=== PATIENT | female | born 1935 | race Caucasian/White ===

== ENCOUNTER 2019-09-04 04:54 | Inpatient (IN) ==
--- NOTE | 2019-08-16 15:21 | PAT Medication Instructions ---
Medication Instructions Date of Service August 16, 2019 Home Medications calcium carbonate [Calcium 600] 600 mg PO QAM cholecalciferol (vitamin D3) [Vitamin D3] 2,000 unit PO QPM metformin 500 mg PO QPM simvastatin 10 mg PO PM vitamin B complex [B Complex 1] 1 tab PO QAM DO NOT take the morning of surgery calcium carbonate [Calcium 600] 600 mg PO QAM vitamin B complex [B Complex 1] 1 tab PO QAM Take evening before surgery cholecalciferol (vitamin D3) [Vitamin D3] 2,000 unit PO QPM metformin 500 mg PO QPM simvastatin 10 mg PO PM Other Notes If you have any questions please call us at [phone] or [phone] or [phone] or [phone]
--- NOTE | 2019-08-17 13:34 | Anesthesiology Consultation ---
Date of Service August 17, 2019 Assessment & Plan (1) Encounter for pre-operative examination: - Awaiting review preop testing (labs, EKG, CXR). - Awaiting surgeon-ordered PCP preop evaluation scheduled 08/22 (Dr. Smith). - Family hx of anesthesia reaction: Son-- *succinylcholine (anectine) allergy* "very hard time coming out of anesthesia many years ago"-- Son "tested negative for MH" per records. No similar personal issues with anesthesia/surgeries per patient. - Check BSG AM DOS Chart Review Chart Review: Patient seen in Pre Admission Testing Teaching & Discussion Pre-Anesthesia Teaching/Discussion Notes: Instructed NPO after midnight before surgery,except medications with 15 cc of water. Medication instructions provided according to the PAT guidelines. History Surgery Operation Date: 09/04/19 12:00 Proposed Procedures p Right Anterior Total Hip Arthroplasty - Eliazar Ny DO Height/Weight Height: 5 ft 5 in Weight: 47.9 kg Allergies Allergy/AdvReac Type Severity Reaction Status Date / Time Bactrim Allergy Unknown . Verified 04/16/15 08:46 pollen extracts Allergy Unknown seasonal Verified 08/17/19 13:33 allergy sulfamethoxazole Allergy Unknown Unknown Verified 08/10/19 09:12 trimethoprim Allergy Unknown Unknown Verified 08/10/19 09:12 meloxicam [From Mobic] Allergy Unknown Verified 08/10/19 09:12 methylprednisolone AdvReac Unknown Unknown Verified 08/10/19 09:12 Medications Home Medications Medication Instructions Recorded Confirmed Last Taken calcium carbonate [Calcium 600] 600 mg PO QAM 08/10/19 08/10/19 Unknown cholecalciferol (vitamin D3) 2,000 unit PO QPM 08/10/19 08/10/19 Unknown [Vitamin D3] metformin 500 mg PO QPM 08/10/19 08/10/19 Unknown simvastatin 10 mg PO PM 08/10/19 08/10/19 Unknown vitamin B complex [B Complex 1] 1 tab PO QAM 08/10/19 08/10/19 Unknown Past Medical History Medical History Degenerative disc disease Diabetes mellitus, type 2 NIDDM History of gastritis Hyperlipidemia Osteoarthritis Exercise / Class Metabolic Activity II 4-5 Yardwork/Stairs/Walk up hill (one flight of stairs- no chest pain/no SOB) Past Family History Family History Mother Family history of diabetes mellitus Past Surgical History Surgical History History of arthroscopy of right knee History of blepharoplasty History of cataract surgery History of esophagogastroduodenoscopy (EGD) History of hysterectomy History of left hip replacement History of lumbar laminectomy History of tonsillectomy Past Anesthesia History No Hx of Anesthesia Complications Family hx of anesthesia reaction: Son-- *succinylcholine (anectine) allergy* "very hard time coming out of anesthesia many years ago"-- Son "tested negative for MH" per records. No similar personal issues with anesthesia/surgeries per patient. History of PONV No Hx of PONV and No Hx of Motion Sickness Social History Smoking Status: Never smoker Do You Dip or Chew Tobacco: No Hx Alcohol Use: No Hx Substance Use: No substance use type: does not use Review of Systems Seasonal allergies. Patient denies chest pain, shortness of breath, dyspnea on exertion, reflux, wheezing, palpitations. Physical Exam Vital Signs VITALS BP 135/73 P 81 TEMP 97.7 SP02 98%RA RESP 16 PHYSICAL Full neck and c-spine range of motion. Full TMJ range of motion. TMD 3 finger breaths Mallampati Score 3 Dentition: upper partial Lungs: clear throughout to auscultation Cardiac: regular rate and rhythm, no murmurs noted Spine: normal Carotid arteries: negative bruit Extremities: no edema
--- NOTE | 2019-08-17 14:27 | XRay Report ---
XR chest Pre-admission PA/Lat CLINICAL HISTORY: pat preoperative evaluation COMPARISON STUDY: 03/14/2015 FINDINGS: Mild emphysematous change. Diaphragms are smooth. Lungs are clear. No significant cardiac e nlargement. IMPRESSION: No acute process. Mild emphysematous change. The above report was generated using voice recognition software. It may contain grammatical, syntax or spelling errors. Electronically signed by: David Bacon M.D. 08/17/2019 2:26 PM
[2019-08-17 14:39] LABS: Basophils # (auto) 0.01 K/uL (0-0.2); Basophils % (auto) 0.2 %; Eosinophils # (auto) 0.01 K/uL (0-0.5); Eosinophils % (auto) 0.2 %; Hematocrit (blood only) 41.2 % (37-47); Hemoglobin 13.5 g/dL (12.0-16.0); Immature Granulocytes # (auto) 0.03 K/uL (0.00-0.02); Immature Granulocytes % (auto) 0.5 %; Lymphocytes # (auto) 1.69 K/uL (1.2-3.4); Lymphocytes % (auto) 29.9 %; Mean Corpuscular Hemoglobin 30.6 pg (25-34); Mean Corpuscular Hgb Conc 32.8 g/dL (32-36); Mean Corpuscular Volume 93.4 fL (80-100); Mean Platelet Volume 10.9 fL (7.4-10.4); Monocytes # (auto) 1.68 K/uL (0.11-0.59); Monocytes % (auto) 29.7 %; Neutrophils # (auto) 2.23 K/uL (1.4-6.5); Neutrophils % (auto) 39.5 %; Platelet Count 169 K/uL (130-400); RDW Coefficient of Variation 13.2 % (11.5-14.5); Red Blood Count 4.41 M/uL (4.2-5.4); White Blood Count 5.65 K/uL (4.8-10.8)
[2019-08-17 14:43] LABS: Appearance Urine Clear (Clear); Bacteria Urine Automated Negative (Negative); Bilirubin Urine Negative (Negative); Blood Urine Negative (Negative); Cast Urine Automated 0 /lpf (0-5); Color Urine Yellow; Epithelial Cell Urine Auto 0-5 /lpf (0-5); Glucose Urine UA Negative (Negative); Ketones Urine Negative (Negative); Leukocyte Esterase Urine 1+ (Negative); Nitrite Urine Negative (Negative); Protein Urine Negative (Negative); RBC Urine Automated 0-4 /hpf (0-4); Specific Gravity Urine 1.016 (1.000-1.030); Urobilinogen Urine Negative (Negative)
[2019-08-17 14:52] LABS: BUN Creatinine Ratio 23.2 (10-20); Calcium 9.1 mg/dl (8.5-10.1); Creatinine Clr Calc Pharmacy 43.3 ml/min; Est GFR (African American) 83.9; Est GFR (Non-African American) 72.4; Potassium 3.9 mmol/L (3.5-5.1)
[2019-08-17 15:02] LABS: Partial Thromboplastin Ratio 1.1; Partial Thromboplastin Time 29.9 Seconds (21.0-31.0); Prothrombin Time 10.5 Seconds (9.0-12.0)
[2019-08-17 15:04] LABS: Estimated Average Glucose 148 mg/dl; Hemoglobin A1C 6.8 % (4.5-5.6)
--- NOTE | 2019-09-03 15:00 | History & Physical Report ---
Date of Service September 03, 2019 Assessment & Plan (1) Degenerative joint disease of right hip: I have indicated the patient for right anterior total hip replacement. The risks, benefits and complications of surgery were explained to the patient which include but not limited to infection, acute blood loss, DVT/PE, injury to nerves, vessels, bone, soft tissue, arthrofibrosis, chronic pain, failure of the prosthesis, hip dislocation, leg length discrepancy, need for additional surgery, cardiac and pulmonary events and . The patient wished to proceed with surgery and informed consent was obtained at this time. We will plan for 81mg ASA BID post-operatively for DVT prophylaxis. Upon discharge the patient will be discharged home with home health services. Appropriate clearances by PCP were obtained. History of Present Illness Chief Complaint: Right hip pain/djd Primary Care Provider: Sherif Porras The patient is a 83 year old female who presents with complaints of severe right hip pain and DJD. The patient has failed outpatient conservative treatments to this point which included NSAIDs, IA corticosteroid injection, PT, home exercise/walking program. The patient's pain and limited function have progressed to the point where they severely hinder their activities of daily living and they no longer tolerate exercise programs. They are requesting to proceed with total hip replacement surgery. Allergies Allergy/AdvReac Type Severity Reaction Status Date / Time Bactrim Allergy Unknown . Verified 04/16/15 08:46 pollen extracts Allergy Unknown seasonal Verified 09/04/19 05:45 allergy sulfamethoxazole Allergy Unknown Unknown Verified 09/04/19 05:45 trimethoprim Allergy Unknown Unknown Verified 09/04/19 05:45 meloxicam [From Mobic] Allergy Unknown Verified 09/04/19 05:45 methylprednisolone AdvReac Unknown Unknown Verified 09/04/19 05:45 Home Medications Home Medications Medication Instructions Recorded Confirmed Type calcium carbonate [Calcium 600] 600 mg PO QAM 08/10/19 08/10/19 History cholecalciferol (vitamin D3) 2,000 unit PO QPM 08/10/19 08/10/19 History [Vitamin D3] metformin 500 mg PO QPM 08/10/19 08/10/19 History simvastatin 10 mg PO PM 08/10/19 08/10/19 History vitamin B complex [B Complex 1] 1 tab PO QAM 08/10/19 08/10/19 History Past Med/Surg History Medical History Degenerative disc disease Diabetes mellitus, type 2 NIDDM History of gastritis Hyperlipidemia Osteoarthritis Surgical History History of arthroscopy of right knee History of blepharoplasty History of cataract surgery History of esophagogastroduodenoscopy (EGD) History of hysterectomy History of left hip replacement History of lumbar laminectomy History of tonsillectomy Family History Mother Family history of diabetes mellitus Social History Preferred Language: Citizen Of [place] Communication Ability: Effective Occasional Caregiver Required: No Beliefs That Will Affect Care: [employer] Beliefs: [employer] Current Living Situation: Spouse Other Information That Helps Us Care for You: No Feels Safe at Home: Yes Safety Concerns: Feels Safe At This Time Smoking Status: Never smoker Do You Dip or Chew Tobacco: No ; Second Hand Exposure: No ; Hx Alcohol Use: No Hx Substance Use: No Review of Systems Review of Systems: All systems reviewed & are unremarkable except as noted in HPI & below Constitutional: as per Subjective / HPI Physical Exam Physical Exam: RLE NVSI +EHL/FHL/TA/GS SILT grossly, +2 DP pulse, compartments soft NT, limited painful ROM of the hip, antalgic gait. Constitutional: WD/WN, vitals as above Eyes: PERRL, conjunctivae normal, anicteric sclerae ENMT: external ear and nose normal, oropharynx normal Neck: trachea midline, no thyromegaly Respiratory: normal respiratory effort, lungs clear to auscultation Cardiovascular: RRR, no murmur, no edema Gastrointestinal (Abdomen): normal bowel sounds, soft, nontender, no hepatosplenomegaly Musculoskeletal: no cyanosis or clubbing, extremities motor strength 5/5 Skin: no rashes, warm and dry Neurologic: patellar DTR's 2+ bilat, sensation intact Psychiatric: A+Ox3, euthymic affect Lymphatic: no cervical or axillary lymphadenopathy Results & Data Diagnostic Findings Multiple views of the hip demonstrates severe DJD with complete loss of the joint space. +osteophytes, +sclerosis, +subchondral cysts.
[2019-09-04] MEDS ORDERED: ROPIVACAINE 0.5% HCL/PF 150 MG, BUPIVACAINE 0.5% MPF 30 ML, EPINEPHrine 30MG/30ML (OR U... INSTIL SCH (06:00)
[2019-09-04] MEDS ORDERED: FAMOTIDINE 20 MG TAB PO SCH (06:00)
[2019-09-04] MEDS ORDERED: CEFAZOLIN 2000MG 2,000 MG/15 ML SYR IV SCH (06:00)
[2019-09-04] MEDS ORDERED: TRANEXAMIC ACID 1,000 MG **IV Pre-op IV SCH (06:00)
[2019-09-04] MEDS ORDERED: LR 15ML/HR IV SCH (06:00)
[2019-09-04] MEDS ORDERED: ACETAMINOPHEN 500 MG TAB PO SCH (06:00)
[2019-09-04] MEDS ORDERED: METOCLOPRAMIDE HCL 10 MG TABLET PO SCH (06:00)
[2019-09-04] MEDS ORDERED: BUPIVACAINE 0.5 % 5 MG/1 ML PF 10ML VIAL ONE (06:25)
[2019-09-04] MEDS ORDERED: TRANEXAMIC ACID 1,000 MG **IV Intra-op IV SCH (06:30)
[2019-09-04] MEDS ORDERED: ORTHO JOINT ANESTHETIC ONE (06:41)
[2019-09-04] MEDS ORDERED: BACITRACIN INJ 50,000 UNIT VIAL ONE (06:41)
[2019-09-04] MEDS ORDERED: MIDAZOLAM HCL 1 MG/ML 2ML VIAL ONE (06:47)
[2019-09-04] MEDS ORDERED: fentaNYL citrate 100 MCG/2 ML VIAL ONE (06:47)
[2019-09-04] MEDS ORDERED: CEFAZOLIN 2,000 MG/15 ML IV PUSH IV ONE (06:51)
[2019-09-04] MEDS ORDERED: ONDANSETRON INJ 2 MG/ML 2 ML VIAL IV PRN ×2 (06:59→10:27)
[2019-09-04] MEDS ORDERED: fentaNYL citrate 100 MCG/2 ML VIAL IV PRN (06:59)
[2019-09-04] MEDS ORDERED: ATROPINE SULFATE 0.1 MG/ML 10ML SYR IV PRN (06:59)
[2019-09-04] MEDS ORDERED: ePHEDrine sulfate 50 MG/ML AMP IV PRN (06:59)
--- NOTE | 2019-09-04 06:59 | History & Physical Bridge Note ---
Date of Service September 04, 2019 History & Physical Bridge Note I have examined the patient, reviewed the History & Physical and in the interval since the performance of the History & Physical I have noted the following changes of clinical significance: no changes noted
[2019-09-04] MEDS ORDERED: LIDOCAINE HCL 2% 2 ML VIAL/AMP(20MG/ML) INFIL ONE (07:19)
[2019-09-04] MEDS ORDERED: ONDANSETRON INJ 2 MG/ML 2 ML VIAL ONE (07:19)
[2019-09-04] MEDS ORDERED: PROPOFOL IV EMULSION 10 MG/ML 20 ML VIAL IV ONE (07:19)
[2019-09-04] MEDS ORDERED: ePHEDrine sulfate 50 MG/ML SYR ONE (07:28)
--- NOTE | 2019-09-04 08:55 | Post Operative Brief Note ---
Immediate Post Op Note v1 Date of Surgery September 04, 2019 Pre & Post Diagnosis Operation Date: 09/04/19 07:00 Pre-Op Diagnosis: Right Hip Osteoarthritis Post-Op Diagnosis: Right Hip Osteoarthritis I identified the patient and participated in the time-out.: Yes Procedure Operation Date: 09/04/19 07:00 Actual Procedures p Right Anterior Total Hip Arthroplasty(Right) - Eliazar Ny DO Surgeon Eliazar Ny DO Screen Printing Supervisor Roldan Morelos Estimated Blood Loss 175 Findings Consistent with Post-Op Diagnosis Fluids 1200 cc LR Specimens femoral head Anesthesia Type Spinal MAC Complications none Disposition Disposition: Recovery Room Overlapping Procedure I was present for: the critical portions of procedure. I was immediately available: during the entire case. Back up surgeon: was not required during procedure.
--- NOTE | 2019-09-04 09:03 | Operative Report ---
Post Operative Report Pre & Post Diagnosis Operation Date: 09/04/19 07:00 Pre-Op Diagnosis: Right Hip Osteoarthritis Post-Op Diagnosis: Right Hip Osteoarthritis I identified the patient and participated in the time-out.: Yes Procedure Operation Date: 09/04/19 07:00 Actual Procedures p Right Anterior Total Hip Arthroplasty(Right) - Eliazar Ny DO Surgeon Eliazar Ny DO Digital Marketing Apprentice Roldan Morelos Estimated Blood Loss 175 Findings Consistent with Post-Op Diagnosis Fluids 1200 cc LR Specimens femoral head Anesthesia Type Spinal MAC Complications none Disposition Disposition: Recovery Room Indications The patient is a 83-year-old female who presents with severe progressive right hip DJD who has failed outpatient conservative treatments. I indicated the patient for a anterior total hip replacement and the risks and benefits were explained in detail which include but not limited to infection, bleeding, blood clot, damage to surrounding bone, nerves, vessels, soft tissue, hip dislocation, failure of the prosthesis, leg length discrepancy, need for additional surgery and . The patient agreed to proceed with replacement of the hip and informed consent was obtained. Appropriate clearances were obtained. Description of Procedure COMPONENTS USED: [employer]ph[employer]-ID [employer] hip system: Acetabulum size 52, femur size 6 standard offset, femoral head 36-3, liner 5236, acetabular screw 25 mm x 1. DESCRIPTION OF PROCEDURE: Following satisfactory spinal anesthesia, the patient was placed supine on the OR table. The left leg was placed in the well leg white and the right leg in the traction device. The right leg was prepared with ChloraPrep and draped sterilely. A surgical timeout was performed, patient identified and site christine verified. Appropriate antibiotics were given. A standard anterior approach in the interval between the sartorius and tensor muscles was performed. Dissection was carried down through subcutaneous tissues. Electrocautery was utilized for hemostasis. Circumflex femoral vessels were identified, tied and ligated. The anterior capsular fat pad was removed and the capsulotomy was performed revealing the arthritic femoral neck and head. A femoral neck cut was made with reciprocating saw and the bone fragments removed. The acetabular self-retraining retractor was placed. Acetabular reaming was completed under fluoroscopic guidance, a 52 shell was impacted into an anatomic position and secured with a dome screw. Local anesthetic was placed and following irrigation, the polyethylene liner was placed. The femur was placed into position of external rotation, extension and adduction. Femoral canal was prepared up to the size 6 standard offset. Trial reduction with a -3 neck length head showed good soft tissue tension, leg lengths restored, and good fit and fill of the proximal canal using fluoroscopic landmarks. The hip was dislocated. The trial component was removed. The final implant was placed. The hip was irrigated with sterile saline solution and reduced. A Betadine soak was performed. After 3 minutes, the hip was once more irrigated with copious sterile saline solution with bacitracin. Danica-incisional soft tissue was injected utilizing [facility] [place] [facility] which includes a combination of Ropivicaine 0.5% 150mg, Bupivicaine 0.5%/Epinephrine 1:200,000 30ml, Toradol 30mg, Dexamethasone 4mg, Ketamine 10mg, Clonidine 100mcg and NSS 30ml solution. The capsule was then closed with 1-0 Vicryl interrupted figure of eight sutures. The fascia was closed with a running suture of #1 Vicryl, the subcutaneous tissues with 2-0 Vicryl and the skin with a running subcuticular stitch of 3-0 V-Loc. Dermabond prineo and a dry dressing were applied. The patient tolerated the procedure well and was transported to PACU in stable condition. Due to the complex nature of the procedure, the entire surgery was performed with the operational assistance of Roldan Morelos PA-C. The surgical supply assistant, under direct supervision, was involved in the actual performance of all aspects of the surgical procedure including patient positioning, hemostasis, tissue retraction, instrument management and wound closure. I attest to the content of the Intraoperative Record and any orders documented therein. Any exceptions are noted below.
--- NOTE | 2019-09-04 09:11 | Fluoroscopy Report ---
FL hip RT 1V HISTORY: 83 years-old Female RT ANTERIOR TOTAL HIP right hip total joint arthroplasty COMPARISON: Pelvis radiograph 04/16/2015 TECHNIQUE: 2 spot fluoroscopic images of the right hip were obtained utilizing 1 minute and 3.5 secon ds fluoroscopy time FINDINGS: Bilateral hip total joint arthroplasties appear to be in satisfactory alignment. Multiple pelvic basi n calcifications redemonstrated. Soft tissue swelling with deep tissue air about the right hip, expec elmer postoperative findings. No acute fracture or dislocation. IMPRESSION: Satisfactory alignment of the right hip total joint arthroplasty. The above report was generated using voice recognition software. It may contain grammatical, syntax o r spelling errors. Electronically signed by: James Thompson M.D. 09/04/2019 9:10 AM
--- NOTE | 2019-09-04 09:48 | XRay Report ---
AP PELVIS, CROSSTABLE LATERAL RIGHT HIP History: Right total hip arthroplasty. Degenerative arthritis. Postop. FINDINGS: The patient is status post a right total hip arthroplasty. The hardware is intact. No fract ure or dislocation. Evidence for prior left total hip arthroplasty. IMPRESSION: Right total hip arthroplasty. No evidence for hardware complication Electronically signed by: Torres Muniz M.D. 09/04/2019 9:47 AM
--- NOTE | 2019-09-04 09:49 | Anesthesiology Progress Note ---
Date of Service September 04, 2019 Anesthesia Post Procedure Vital Signs Vital Signs: Temp Pulse Pulse Pulse Resp BP BP 09/04/19 09:45 77 14 119/63 09/04/19 09:40 73 14 116/62 09/04/19 09:35 81 14 106/56 L 09/04/19 09:30 85 20 125/60 09/04/19 09:25 97.5 F L 83 83 16 111/61 111/61 09/04/19 05:33 97.7 F 72 18 146/78 H Pulse Ox 09/04/19 09:45 99 09/04/19 09:40 99 09/04/19 09:35 98 09/04/19 09:30 94 09/04/19 09:25 96 09/04/19 05:33 99 Pain Intensity Right Hip: Pain Intensity: 0 Transfer of Care Handoff Completed per policy Notes Mental Status: alert / awake / arousable and participated in evaluation Patient Amnestic to Procedure: Yes Nausea / Vomiting: adequately controlled Pain: adequately controlled Airway Patency, RR, SpO2: stable & adequate BP & HR: stable & adequate Hydration State: stable & adequate Neuraxial Anesthesia: was administered and sensory block is resolving Anesthetic Complications: no major complications apparent and Pt Satisfied with anesthetic care
[2019-09-04] MEDS ORDERED: BISACODYL 10 MG SUPP PR PRN (10:27)
[2019-09-04] MEDS ORDERED: METOCLOPRAMIDE HCL INJ 5 MG/ML 2 ML VIAL IV PRN (10:27)
[2019-09-04] MEDS ORDERED: HYDROmorphone INJ 0.5 MG/0.5 ML SYR IV PRN (10:27)
[2019-09-04] MEDS ORDERED: NALOXONE HCL 0.4 MG/1 ML VIAL/CARP IV PRN (10:27)
[2019-09-04] MEDS ORDERED: MAGNESIUM HYDROXIDE SUSP 30 ML UDC PO PRN (10:27)
[2019-09-04] MEDS: SODIUM CHLORIDE 0.9% 1000ML 1,000 ML IV SCH ×2 (10:55→21:11)
[2019-09-04] MEDS ORDERED: PHARMACY GLYCEMIC MGMT CONSULT PRN (11:06)
[2019-09-04] MEDS: dexAMETHasone 4 MG TAB PO SCH ×2 (11:11→15:09)
[2019-09-04] MEDS ORDERED: CARBOHYDRATES FOR HYPOGLYCEMIA PO PRN (11:30)
[2019-09-04] MEDS ORDERED: GLUCOSE 10 TABS/TUBE PO PRN (11:30)
[2019-09-04] MEDS ORDERED: DEXTROSE 50% 50 ML SYRINGE IV PRN (11:30)
[2019-09-04] MEDS ORDERED: GLUCAGON FOR INJ 1 MG VIAL SQ PRN (11:30)
[2019-09-04] MEDS ORDERED: GLUCOSE 40% GEL 15 GM TUBE PO PRN (11:30)
--- NOTE | 2019-09-04 11:31 | Pharmacy Report ---
Glycemic Control Consultation - Date of Service September 04, 2019 - Scope Scope: Glycemic Pharmacist consulted by Dr Ny on 09/04 for glycemic control and to write orders per [facility] inpatient glycemic control protocol - Objective Weight: 48.3 kg Accuchecks BSG (last 24hrs): 09/04/19 09/04/19 05:19 09:30 POC Glucose 114 H 164 H HbA1c: Hemoglobin A1c 6.8 % (4.5-5.6) H 08/17/19 14:00 - Recent Pertinent Medications Outpatient Anti-diabetic Regimen: * Metformin ER 500 mg daily * A1c = 6.8 % 08/17/19 Risk Factors for Insulin Resistance: * Steroids: Decadron 4 mg in periarticular injection; patient refused po preop Decadron * Recent Surgery: POD 0 s/p R MALIK * Diet: NPO -> T2DM - Assessment & Plan Assessment & Plan: ASSESSMENT: * 83 y/o female with history of well controlled T2DM, admitted s/p MALIK * Pt is maintained on oral antidiabetic agents as an outpatient * Oral agents are not recommended for inpatient use d/t drug interactions, changing PO intake, and difficulty titrating for acute hyper/hypoglycemia. ADA recommends re-initiating outpatient oral agents 1-2 days prior to discharge if/when appropriate if they were held on admission. * Will hold oral agents for admission and utilize SQ basal bolus insulin regimen which is the recommended regimen for inpatient glycemic control. * Will initiate weight based insulin dosing for insulin dong patient and titrate based on BSG trends. PLAN FOR INPATIENT GLYCEMIC CONTROL: * Holding outpatient oral diabetes medications * Bolus insulin * NovoLog per scale ACHS or Q6hrs while NPO * Goal Range: Low 110 mg/dL - High 140 mg/dL * Correction Factor: 40 mg/dL/unit * Nutritional / Prandial insulin per carb ratio of 1 unit per 13 grams CHO consumed Discharge Recommendations: * A1c = 6.8% on 08/17/19 * Goal A1c < 7% for patient's age/comorbidities * Continue metformin on discharge. Metformin has been adjusted on med list to ER formulation. Thank you.
[2019-09-04] MEDS: MULTIVITAMIN TAB PO SCH (12:29)
[2019-09-04] MEDS: DOCUSATE SODIUM 100 MG CAP PO SCH ×2 (12:29→21:08)
[2019-09-04] MEDS: INSULIN ASPART 100 UNITS/ML 3 ML PEN SC SCH ×3 (12:51→22:15)
[2019-09-04] MEDS: CEFAZOLIN 1000MG 1,000 MG/7.5 ML SYR IV SCH ×2 (16:23→23:34)
--- NOTE | 2019-09-04 18:02 | Orthopedic Progress Note ---
Date of Service September 04, 2019 Assessment & Plan (1) Degenerative joint disease of right hip: s/p R anterior MALIK -ancef x 24 -DVT ppx: SCDs, TEDs, 81mg ASA BID -WBAT RLE -PT/OT -PO XR demonstrates well aligned well fixed total hip prothesis, no fx/dislocation -am labs -DC planning Subjective Post Operative Progress Note Patient seen sitting up in bed, comfortable, denies complaints, pain well controlled, no acute issues. Denies F/C/N/V/SOP/CP. Review of Systems Review of Systems: All systems reviewed & are unremarkable except as noted in HPI & below Physical Exam Physical Exam: RLE NVSI +EHL/FHL/TA/GS SILT grossly, +2 DP pulse, compartments soft NT, dressing cdi. Constitutional: WD/WN, vitals as above Results & Data Vital Signs (Past 12 Hours) Vital Signs Temp Pulse Pulse Pulse Pulse Resp BP 09/04/19 15:03 36.7 C 63 17 09/04/19 14:51 36.7 C 86 17 09/04/19 13:15 36.4 C L 81 16 09/04/19 12:33 36.3 C L 09/04/19 12:15 85 16 09/04/19 11:13 69 16 09/04/19 10:27 76 16 09/04/19 10:15 34.7 C L 75 16 09/04/19 10:00 72 14 119/63 09/04/19 09:55 72 11 L 120/61 09/04/19 09:53 36.4 C L 09/04/19 09:50 73 14 112/62 09/04/19 09:45 77 14 119/63 09/04/19 09:40 73 14 116/62 09/04/19 09:35 81 14 106/56 L 09/04/19 09:30 85 20 125/60 09/04/19 09:25 36.4 C L 83 83 16 111/61 BP Pulse Ox 09/04/19 15:03 112/73 97 09/04/19 14:51 134/59 L 96 09/04/19 13:15 127/65 97 09/04/19 12:33 09/04/19 12:15 133/68 96 09/04/19 11:13 122/67 98 09/04/19 10:27 126/75 96 09/04/19 10:15 110/64 09/04/19 10:00 99 09/04/19 09:55 99 09/04/19 09:53 100 09/04/19 09:50 99 09/04/19 09:45 99 09/04/19 09:40 99 09/04/19 09:35 98 09/04/19 09:30 94 09/04/19 09:25 111/61 96
[2019-09-04] MEDS: OXYCODONE HCL IR 5 MG TAB (IMMEDIATE RELEASE) PO PRN (19:49)
[2019-09-04] MEDS ORDERED: SIMVASTATIN 10 MG TAB PO SCH (21:00)
[2019-09-04] MEDS ORDERED: SENNA 8.6 MG TAB PO SCH (21:00)
[2019-09-04] MEDS: ACETAMINOPHEN 500 MG TAB PO PRN (21:08)
[2019-09-04] MEDS ORDERED: IBUPROFEN 200 MG TAB PO STA (22:09)
[2019-09-05] MEDS: ACETAMINOPHEN 500 MG TAB PO PRN (03:10)
[2019-09-05] MEDS: OXYCODONE HCL IR 5 MG TAB (IMMEDIATE RELEASE) PO PRN (05:40)
[2019-09-05 06:01] LABS: Hematocrit (blood only) 30.2 % (37-47); Mean Corpuscular Hemoglobin 30.9 pg (25-34); Mean Corpuscular Hgb Conc 33.1 g/dL (32-36); Mean Corpuscular Volume 93.2 fL (80-100); Mean Platelet Volume 11.2 fL (7.4-10.4); Platelet Count 116 K/uL (130-400); RDW Coefficient of Variation 13.4 % (11.5-14.5); RDW Standard Deviation 45.6 fL (36.4-46.3); Red Blood Count 3.24 M/uL (4.2-5.4); White Blood Count 34.49 K/uL (4.8-10.8)
[2019-09-05 06:02] LABS: BUN Creatinine Ratio 29.1 (10-20); Creatinine Clr Calc Pharmacy 43.1 ml/min; Est GFR (African American) 82.6; Est GFR (Non-African American) 71.3; Potassium 3.4 mmol/L (3.5-5.1)
[2019-09-05 06:15] LABS: ALC (manual) 1.48 K/uL (1.2-3.4); ANC (manual) 24.07 K/uL (1.4-6.5); Lymphocytes # (manual) 1.48 K/uL (1.2-3.4); Lymphocytes % (manual) 4.3 %; Monocytes # (manual) 8.93 K/uL (0.11-0.59); Monocytes % (manual) 25.9 %; Neutrophils # (manual) 24.07 K/uL (1.4-6.5); Neutrophils % (manual) 69.8 %; RBC Morphology Unremarkable
[2019-09-05] MEDS: DOCUSATE SODIUM 100 MG CAP PO SCH (08:27)
[2019-09-05] MEDS: MULTIVITAMIN TAB PO SCH (08:27)
[2019-09-05 08:38] LABS: Hematocrit (blood only) 29.5 % (37-47); Hemoglobin 10.1 g/dL (12.0-16.0); Mean Corpuscular Hemoglobin 31.6 pg (25-34); Mean Corpuscular Hgb Conc 34.2 g/dL (32-36); Mean Corpuscular Volume 92.2 fL (80-100); Mean Platelet Volume 10.5 fL (7.4-10.4); Platelet Count 111 K/uL (130-400); RDW Coefficient of Variation 13.5 % (11.5-14.5); RDW Standard Deviation 45.5 fL (36.4-46.3)
[2019-09-05 08:48] LABS: ALC (manual) 2.22 K/uL (1.2-3.4); ANC (manual) 20.86 K/uL (1.4-6.5); Lymphocytes # (manual) 2.22 K/uL (1.2-3.4); Lymphocytes % (manual) 6.1 %; Metamyelocytes # (manual) 0.33 K/uL (0-0); Metamyelocytes % (manual) 0.9 %; Monocytes # (manual) 12.99 K/uL (0.11-0.59); Monocytes % (manual) 35.7 %; Neutrophils # (manual) 20.86 K/uL (1.4-6.5); Neutrophils % (manual) 57.3 %
[2019-09-05] MEDS ORDERED: ASPIRIN 81 MG ECTAB PO SCH (09:00)
[2019-09-05] MEDS: INSULIN ASPART 100 UNITS/ML 3 ML PEN SC SCH ×2 (09:02→12:52)
--- NOTE | 2019-09-05 10:12 | Orthopedic Progress Note ---
Date of Service September 05, 2019 Assessment & Plan (1) Degenerative joint disease of right hip: s/p R anterior MALIK POD#1 -ancef x 24 -DVT ppx: SCDs, TEDs, 81mg ASA BID -WBAT RLE -PT/OT -PO XR demonstrates well aligned well fixed total hip prothesis, no fx/dislocation -am labs - 10.0 -DC planning - home with HH Subjective Post Operative Progress Note Patient seen sitting up in bed, comfortable, denies complaints, pain well controlled, no acute issues. Denies F/C/N/V/SOP/CP. Review of Systems Review of Systems: All systems reviewed & are unremarkable except as noted in HPI & below Constitutional: as per Subjective / HPI Physical Exam Physical Exam: RLE NVSI +EHL/FHL/TA/GS SILT grossly, +2 DP pulse, compartments soft NT, dressing cdi. Constitutional: WD/WN, vitals as above Results & Data Vital Signs (Past 12 Hours) Vital Signs Temp Pulse Resp BP Pulse Ox 09/05/19 06:57 36.6 C 69 18 95/57 L 95 09/05/19 03:00 36.8 C 74 16 99/49 L 97 09/04/19 23:13 37.8 C H 85 18 107/49 L 94 Laboratory Results 09/05/19 09/05/19 09/05/19 Range/Units 08:16 08:06 04:45 WBC 36.40 H* (4.8-10.8) K/uL RBC 3.20 L (4.2-5.4) M/uL Hgb 10.1 L (12.0-16.0) g/dL Hct 29.5 L (37-47) % MCV 92.2 (80-100) fL MCH 31.6 (25-34) pg MCHC 34.2 (32-36) g/dL RDW Std Deviation 45.5 (36.4-46.3) fL RDW Coeff of Morirs 13.5 (11.5-14.5) % Plt Count 111 L (130-400) K/uL MPV 10.5 H (7.4-10.4) fL Neutrophils % (Manual) 57.3 % Lymphocytes % (Manual) 6.1 % Monocytes % (Manual) 35.7 % Metamyelocytes % (Man) 0.9 % Neutrophils # (Manual) 20.86 H (1.4-6.5) K/uL Total Absolute Neuts 20.86 H (1.4-6.5) K/uL Lymphocytes # (Manual) 2.22 (1.2-3.4) K/uL Total Abs Lymphocytes 2.22 (1.2-3.4) K/uL Monocytes # (Manual) 12.99 H (0.11-0.59) K/uL Metamyelocytes # (Man) 0.33 H (0-0) K/uL RBC Morphology Sodium 135 L (136-145) mmol/L Potassium 3.4 L (3.5-5.1) mmol/L Chloride 102 (98-107) mmol/L Carbon Dioxide 25 (21-32) mmol/L Anion Gap 8.0 (3-11) BUN 23 H (7-18) mg/dl Creatinine 0.78 (0.6-1.2) mg/dl Est Cr Clr Drug Dosing 43.1 ml/min Est GFR ( Amer) 82.6 Est GFR (Non-Af Amer) 71.3 BUN/Creatinine Ratio 29.1 H (10-20) Glucose 192 H (70-99) mg/dl POC Glucose 208 H (70-99) Calcium 8.0 L (8.5-10.1) mg/dl 09/05/19 09/04/19 09/04/19 Range/Units 04:45 20:29 17:09 WBC 34.49 H* (4.8-10.8) K/uL RBC 3.24 L (4.2-5.4) M/uL Hgb 10.0 L (12.0-16.0) g/dL Hct 30.2 L (37-47) % MCV 93.2 (80-100) fL MCH 30.9 (25-34) pg MCHC 33.1 (32-36) g/dL RDW Std Deviation 45.6 (36.4-46.3) fL RDW Coeff of Morris 13.4 (11.5-14.5) % Plt Count 116 L (130-400) K/uL MPV 11.2 H (7.4-10.4) fL Neutrophils % (Manual) 69.8 % Lymphocytes % (Manual) 4.3 % Monocytes % (Manual) 25.9 % Metamyelocytes % (Man) % Neutrophils # (Manual) 24.07 H (1.4-6.5) K/uL Total Absolute Neuts 24.07 H (1.4-6.5) K/uL Lymphocytes # (Manual) 1.48 (1.2-3.4) K/uL Total Abs Lymphocytes 1.48 (1.2-3.4) K/uL Monocytes # (Manual) 8.93 H (0.11-0.59) K/uL Metamyelocytes # (Man) (0-0) K/uL RBC Morphology Unremarkable Sodium (136-145) mmol/L Potassium (3.5-5.1) mmol/L Chloride (98-107) mmol/L Carbon Dioxide (21-32) mmol/L Anion Gap (3-11) BUN (7-18) mg/dl Creatinine (0.6-1.2) mg/dl Est Cr Clr Drug Dosing ml/min Est GFR ( Amer) Est GFR (Non-Af Amer) BUN/Creatinine Ratio (10-20) Glucose (70-99) mg/dl POC Glucose 116 H 192 H (70-99) Calcium (8.5-10.1) mg/dl 09/04/ Range/Units 12:11 WBC (4.8-10.8) K/uL RBC (4.2-5.4) M/uL Hgb (12.0-16.0) g/dL Hct (37-47) % MCV (80-100) fL MCH (25-34) pg MCHC (32-36) g/dL RDW Std Deviation (36.4-46.3) fL RDW Coeff of Morris (11.5-14.5) % Plt Count (130-400) K/uL MPV (7.4-10.4) fL Neutrophils % (Manual) % Lymphocytes % (Manual) % Monocytes % (Manual) % Metamyelocytes % (Man) % Neutrophils # (Manual) (1.4-6.5) K/uL Total Absolute Neuts (1.4-6.5) K/uL Lymphocytes # (Manual) (1.2-3.4) K/uL Total Abs Lymphocytes (1.2-3.4) K/uL Monocytes # (Manual) (0.11-0.59) K/uL Metamyelocytes # (Man) (0-0) K/uL RBC Morphology Sodium (136-145) mmol/L Potassium (3.5-5.1) mmol/L Chloride (98-107) mmol/L Carbon Dioxide (21-32) mmol/L Anion Gap (3-11) BUN (7-18) mg/dl Creatinine (0.6-1.2) mg/dl Est Cr Clr Drug Dosing ml/min Est GFR ( Amer) Est GFR (Non-Af Amer) BUN/Creatinine Ratio (10-20) Glucose (70-99) mg/dl POC Glucose 139 H (70-99) Calcium (8.5-10.1) mg/dl
--- NOTE | 2019-09-05 12:01 | Consultation ---
Date of Consultation September 05, 2019 Assessment & Plan (1) Leukocytosis: incidentally found to have elevated WBC at 34k differential was normal, no left shift, no bands had a low grade fever last night but nothing since no evidence of infection at this time, lungs clear, abdomen soft, NT CXR is normal, UA clean, procalcitonin is 0.34 which argues against a bacterial infection patient can go home from medical perspective, elevated WBC most likely reactive after surgery script given to follow up on 09/08 with outpatient CBC with results to her PCP instructed her to return to hospital if she has a fever, develops cough, dysuria, abdominal pain, diarrhea etc History of Present Illness Requesting Physician: Dr. Rojas Reason for Consultation: Leukocytosis Attending Physician: Eliazar Ny DO History of Present Illness 83 yo female with medical history of DM type II, dyslipidemia and OA who presented for elective right MALIK with Dr. Ny. Surgery performed on 09/04, no complications, transferred to medical floor in stable condition. Patient had a low grade fever last night at 38.3 but she does not recall feeling warm or diaphoretic. This morning she is feeling well, she is ambulating with therapy, doing her exercises. She ate breakfast. + flatus but not BM. She denies chest pain, dyspnea, cough, abdominal pain. She denies dysuria, urinary frequency, urgency. She has some right hip pain but well controlled and not limiting her mobility. She had some light headedness with walking in the hallway, the RN told me this, the patient left this out. We are consulted for a leukocytosis this morning of 34k. This was on routine CBC. The neutrophils and lymphocytes were within a normal differential. At first thought it was due to Decadron that was ordered pre op but the patient refused to take it yesterday. This was confirmed by RN. WBC was repeated to rule out lab error and it again was 36k. Again, the patient denies fever, cough, dyspnea, abdominal pain, dysuria. No obvious rashes. She wants to go home today. Allergies Allergy/AdvReac Type Severity Reaction Status Date / Time Bactrim Allergy Unknown . Verified 04/16/15 08:46 pollen extracts Allergy Unknown seasonal Verified 09/04/19 05:45 allergy sulfamethoxazole Allergy Unknown Unknown Verified 09/04/19 05:45 trimethoprim Allergy Unknown Unknown Verified 09/04/19 05:45 meloxicam [From Mobic] Allergy Unknown Verified 09/04/19 05:45 methylprednisolone AdvReac Unknown Unknown Verified 09/04/19 05:45 Home Medications Home Medications Medication Instructions Recorded Confirmed Type calcium carbonate [Calcium 600] 600 mg PO QAM 08/10/19 09/04/19 History cholecalciferol (vitamin D3) 2,000 unit PO QPM 08/10/19 09/04/19 History [Vitamin D3] simvastatin 10 mg PO PM 08/10/19 09/04/19 History vitamin B complex [B Complex 1] 1 tab PO QAM 08/10/19 09/04/19 History metformin 500 mg PO QPM 09/04/19 09/04/19 History acetaminophen 1,000 mg PO Q8H PRN #90 tab 09/05/19 Rx aspirin 81 mg PO BID #56 tab 09/05/19 Rx oxycodone 5 mg PO Q6H PRN #30 tab MDD 6 tabs 09/05/19 Rx sennosides [Senna-Extra] 17.2 mg PO HS PRN #28 tab 09/05/19 Rx Patient History Medical History Degenerative disc disease Diabetes mellitus, type 2 NIDDM History of gastritis Hyperlipidemia Osteoarthritis Surgical History History of arthroscopy of right knee History of blepharoplasty History of cataract surgery History of esophagogastroduodenoscopy (EGD) History of hysterectomy History of left hip replacement History of lumbar laminectomy History of tonsillectomy Family History Mother Family history of diabetes mellitus Social History Preferred Language: [place] Communication Ability: Effective Surplus Property Disposal Agent Required: No Beliefs That Will Affect Care: Christian Christian Beliefs: CONFUCIANISM Current Living Situation: Spouse Other Information That Helps Us Care for You: No Feels Safe at Home: Yes Safety Concerns: Feels Safe At This Time Smoking Status: Never smoker Do You Dip or Chew Tobacco: No ; Second Hand Exposure: No ; Hx Alcohol Use: No Hx Substance Use: No Review of Systems Review of Systems: All systems reviewed & are unremarkable except as noted in HPI & below Constitutional: no fever, no chills, no sweats, no fatigue and no weakness Respiratory: no cough, no dyspnea and no wheezing Cardiovascular: no chest pain, no palpitations, no syncope and no edema Gastrointestinal: no abdominal pain, no nausea, no vomiting, no constipation and no diarrhea/loose stools Genitourinary: no dysuria, no difficulty urinating, no urinary frequency, no urinary hesitancy and no urinary urgency Musculoskeletal: + joint pain (right hip, mild) Physical Exam Constitutional: WD/WN, vitals as above Eyes: PERRL, conjunctivae normal, anicteric sclerae ENMT: external ear and nose normal, oropharynx normal Neck: trachea midline, no thyromegaly Respiratory: normal respiratory effort, lungs clear to auscultation Cardiovascular: RRR, no murmur, no edema Gastrointestinal (Abdomen): normal bowel sounds, soft, nontender, no hepatosplenomegaly Musculoskeletal: no cyanosis or clubbing, extremities motor strength 5/5 Skin: no rashes, warm and dry Neurologic: patellar DTR's 2+ bilat, sensation intact and PERRL, EOMI, accommodation nl, no face palsy, no dysarthria Psychiatric: A+Ox3, euthymic affect Lymphatic: no cervical or axillary lymphadenopathy Results & Data Vital Signs (Past 12 Hours) Vital Signs Temp Pulse Pulse Resp BP Pulse Ox 09/05/19 11:01 36.5 C 72 16 113/65 98 09/05/19 06:57 36.6 C 69 18 95/57 L 95 09/05/19 03:00 36.8 C 74 16 99/49 L 97 Laboratory Results Laboratory Results - last 24 hr 09/04/19 09/04/19 09/04/19 12:11 17:09 20:29 WBC RBC Hgb Hct MCV MCH MCHC RDW Std Deviation RDW Coeff of Morris Plt Count MPV Neutrophils % (Manual) Lymphocytes % (Manual) Monocytes % (Manual) Metamyelocytes % (Man) Neutrophils # (Manual) Total Absolute Neuts Lymphocytes # (Manual) Total Abs Lymphocytes Monocytes # (Manual) Metamyelocytes # (Man) RBC Morphology Sodium Potassium Chloride Carbon Dioxide Anion Gap BUN Creatinine Est Cr Clr Drug Dosing Est GFR ( Amer) Est GFR (Non-Af Amer) BUN/Creatinine Ratio Glucose POC Glucose 139 H 192 H 116 H Calcium 09/05/19 09/05/19 09/05/19 04:45 04:45 08:06 WBC 34.49 H* RBC 3.24 L Hgb 10.0 L Hct 30.2 L MCV 93.2 MCH 30.9 MCHC 33.1 RDW Std Deviation 45.6 RDW Coeff of Morris 13.4 Plt Count 116 L MPV 11.2 H Neutrophils % (Manual) 69.8 Lymphocytes % (Manual) 4.3 Monocytes % (Manual) 25.9 Metamyelocytes % (Man) Neutrophils # (Manual) 24.07 H Total Absolute Neuts 24.07 H Lymphocytes # (Manual) 1.48 Total Abs Lymphocytes 1.48 Monocytes # (Manual) 8.93 H Metamyelocytes # (Man) RBC Morphology Unremarkable Sodium 135 L Potassium 3.4 L Chloride 102 Carbon Dioxide 25 Anion Gap 8.0 BUN 23 H Creatinine 0.78 Est Cr Clr Drug Dosing 43.1 Est GFR ( Amer) 82.6 Est GFR (Non-Af Amer) 71.3 BUN/Creatinine Ratio 29.1 H Glucose 192 H POC Glucose 208 H Calcium 8.0 L 09/05/19 09/05/19 08:16 11:49 WBC 36.40 H* RBC 3.20 L Hgb 10.1 L Hct 29.5 L MCV 92.2 MCH 31.6 MCHC 34.2 RDW Std Deviation 45.5 RDW Coeff of Morris 13.5 Plt Count 111 L MPV 10.5 H Neutrophils % (Manual) 57.3 Lymphocytes % (Manual) 6.1 Monocytes % (Manual) 35.7 Metamyelocytes % (Man) 0.9 Neutrophils # (Manual) 20.86 H Total Absolute Neuts 20.86 H Lymphocytes # (Manual) 2.22 Total Abs Lymphocytes 2.22 Monocytes # (Manual) 12.99 H Metamyelocytes # (Man) 0.33 H RBC Morphology Sodium Potassium Chloride Carbon Dioxide Anion Gap BUN Creatinine Est Cr Clr Drug Dosing Est GFR ( Amer) Est GFR (Non-Af Amer) BUN/Creatinine Ratio Glucose POC Glucose 175 H Calcium Medications Administered Current Inpatient Medications Acetaminophen (Tylenol) 1,000 mg PO Q6H PRN PRN Reason: Pain Stop: 10/04/19 10:26 Last Admin: 09/05/19 03:10 Dose: 1,000 mg Documented by: Aspirin (Ecotrin Ectab) 81 mg PO BID [facility] Stop: 10/05/19 08:59 Last Admin: 09/05/19 08:27 Dose: 81 mg Documented by: Bisacodyl (Dulcolax) 10 mg SC DAILY PRN PRN Reason: Constipation Stop: 10/04/19 10:26 Dextrose (Dextrose 50%) 25 - 50 ml IV UD PRN; Protocol PRN Reason: Hypoglycemia Protocol Stop: 10/04/19 11:29 Docusate Sodium (Colace) 100 mg PO BID [facility] Stop: 10/04/19 10:26 Last Admin: 09/05/19 08:27 Dose: 100 mg Documented by: Glucagon (Glucagen) 1 mg SQ UD PRN; Protocol PRN Reason: Hypoglycemia Protocol Stop: 10/04/19 11:29 Glucose (Glucose 40%) 15 - 30 gm PO UD PRN; Protocol PRN Reason: Hypoglycemia Protocol Stop: 10/04/19 11:29 Glucose (Dex4 Glucose) 4 - 8 tabs PO UD PRN; Protocol PRN Reason: Hypoglycemia Protocol Stop: 10/04/19 11:29 Hydromorphone HCl (Dilaudid) 0.5 mg IV Q4H PRN PRN Reason: Pain Stop: 09/18/19 10:26 Insulin Aspart (Novolog Flexpen) 0 units [facility]; Protocol Stop: 10/04/19 11:29 Last Admin: 09/05/19 09:02 Dose: 4 units Documented by: Magnesium Hydroxide (Milk Of Magnesia) 30 ml PO Q6H PRN PRN Reason: Constipation Stop: 10/04/19 10:26 Metoclopramide HCl (Reglan) 10 mg IV Q6H PRN PRN Reason: Nausea And Vomiting Stop: 10/04/19 10:26 Miscellaneous (Carbohydrates For Hypoglycemia) 15 - 30 gm PO UD PRN PRN Reason: Hypoglycemia Treatment Stop: 10/04/19 11:29 Miscellaneous Information (Consult Glycemic Management Pharmacy) 1 ea N/A UD PRN PRN Reason: Consult Stop: 10/04/19 11:05 Multivitamins (Multivitamin Tab) 1 tab PO QAM [facility] Stop: 10/04/19 10:59 Last Admin: 09/05/19 08:27 Dose: 1 tab Documented by: Naloxone HCl (Narcan) 0.1 mg IV Q5M PRN PRN Reason: Oversedation/Resp Depression Stop: 10/04/19 10:26 Ondansetron HCl (Zofran) 4 mg IV Q6H PRN PRN Reason: Nausea And Vomiting Stop: 10/04/19 10:26 Oxycodone HCl (Roxicodone Immediate Rel) 5 - 10 mg PO Q4H PRN PRN Reason: Pain Stop: 09/18/19 10:26 Last Admin: 09/05/19 05:40 Dose: 10 mg Documented by: Sennosides (Senokot) 17.2 mg PO HS JOSE Stop: 10/04/19 20:59 Last Admin: 09/04/19 21:08 Dose: 17.2 mg Documented by: Simvastatin (Zocor) 10 mg PO PM JOSE Stop: 10/04/19 20:59 Last Admin: 09/04/19 21:08 Dose: 10 mg Documented by: PG Care Time/CCT Total # of Minutes Spent Total Time Spent with Patient: Total time spent is greater than 50% in coord ination of care (as documented) at patient's floor/unit and/or counseling patient:
[2019-09-05 12:10] LABS: Appearance Urine Clear (Clear); Bilirubin Urine Negative (Negative); Blood Urine Negative (Negative); Color Urine Yellow; Glucose Urine UA Trace (Negative); Ketones Urine Negative (Negative); Leukocyte Esterase Urine Negative (Negative); Nitrite Urine Negative (Negative); Protein Urine Negative (Negative); Specific Gravity Urine 1.017 (1.000-1.030); Urobilinogen Urine Negative (Negative)
[2019-09-05 12:47] LABS: Hematocrit (blood only) 32.9 % (37-47); Hemoglobin 11.1 g/dL (12.0-16.0); Mean Corpuscular Hemoglobin 31.1 pg (25-34); Mean Corpuscular Hgb Conc 33.7 g/dL (32-36); Mean Corpuscular Volume 92.2 fL (80-100); Mean Platelet Volume 10.7 fL (7.4-10.4); Platelet Count 122 K/uL (130-400); RDW Coefficient of Variation 13.7 % (11.5-14.5); RDW Standard Deviation 46.1 fL (36.4-46.3); Red Blood Count 3.57 M/uL (4.2-5.4); White Blood Count 32.27 K/uL (4.8-10.8)
[2019-09-05 13:01] LABS: ALC (manual) 0.84 K/uL (1.2-3.4); ANC (manual) 24.07 K/uL (1.4-6.5); Lymphocytes # (manual) 0.84 K/uL (1.2-3.4); Lymphocytes % (manual) 2.6 %; Monocytes # (manual) 7.36 K/uL (0.11-0.59); Monocytes % (manual) 22.8 %; Neutrophils # (manual) 24.07 K/uL (1.4-6.5); Neutrophils % (manual) 74.6 %
--- NOTE | 2019-09-05 13:01 | XRay Report ---
XR chest 1V portable CLINICAL HISTORY: leukocytosis, fever COMPARISON STUDY: Chest radiograph August 17, 2019. FINDINGS: Lung volumes are normal. There is no pneumothorax. A trace left pleural effusion is noted. Minimal left basilar opacity favors atelectasis. No consolidation is identified. Cardiac size is norm al. Mediastinal contours are normal. There is no evidence for pulmonary edema. IMPRESSION: 1. Trace left pleural effusion with mild left basilar opacity suggestive of atelectasis. 2. No consolidation to suggest pneumonia. Electronically signed by: Raghavendra Raya M.D. 09/05/2019 1:00 PM
[2019-09-05 13:26] LABS: Albumin Globulin Ratio 1.1 (0.9-2); Albumin Level 3.3 gm/dl (3.4-5.0); BUN Creatinine Ratio 22.4 (10-20); Bilirubin,Total 0.6 mg/dl (0.2-1); Calcium 8.8 mg/dl (8.5-10.1); Creatinine Clr Calc Pharmacy 41.5 ml/min; Est GFR (African American) 78.9; Est GFR (Non-African American) 68.1; Globulin 2.9 gm/dl (2.5-4.0); Potassium 3.5 mmol/L (3.5-5.1); Total Protein 6.2 gm/dl (6.4-8.2)
[2019-09-05] MEDS ORDERED: METFORMIN HCL ER 500 MG TABCR PO SCH (16:30)
--- NOTE | 2019-09-06 21:27 | Discharge Summary ---
Date of Service September 06, 2019 Admission HPI Per Admitting Provider The patient is a 83 year old female who presents with complaints of severe right hip pain and DJD. The patient has failed outpatient conservative treatments to this point which included NSAIDs, IA corticosteroid injection, PT, home exercise/walking program. The patient's pain and limited function have progressed to the point where they severely hinder their activities of daily living and they no longer tolerate exercise programs. They are requesting to proceed with total hip replacement surgery. Principal Diagnosis Right anterior total hip replacement Discharge Exam RLE NVSI +EHL/FHL/TA/GS SILT grossly, +2 DP pulse, compartments soft NT, dressing cdi. Constitutional WD/WN, vitals as above Discharge Data Allergies Allergy/AdvReac Type Severity Reaction Status Date / Time Bactrim Allergy Unknown . Verified 04/16/15 08:46 pollen extracts Allergy Unknown seasonal Verified 09/04/19 05:45 allergy sulfamethoxazole Allergy Unknown Unknown Verified 09/04/19 05:45 trimethoprim Allergy Unknown Unknown Verified 09/04/19 05:45 meloxicam [From Mobic] Allergy Unknown Verified 09/04/19 05:45 methylprednisolone AdvReac Unknown Unknown Verified 09/04/19 05:45 Consultations 09/05/19 06:42 Consult Hospitalist Routine 09/05/19 08:00 Consult Case Management - Discharge Planning Routine Procedures Performed Operation Date: 09/04/19 07:00 Actual Procedures p Right Anterior Total Hip Arthroplasty(Right) - Eliazar Ny DO Ordered Studies 09/04/19 07:00 FL fluoroscopy <1hr Routine FL hip RT 1V Routine Hospital Course (1) Degenerative joint disease of right hip: The patient is a 83 -year-old female who presents with 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 The patient's symptoms have progressed to the point where it has been difficult to perform even normal activities of daily living. I indicated the patient for a right anterior total hip arthroplasty, the risks, benefits and complications of the procedure include but not limited to infection, bleeding, damage to bone, nerves, vessels, surrounding soft tissue, may develop blood clots, loss of function, leg length discrepancy, dislocation, failure of the components, loosening of the components, the need for additional surgery and . The patient wished to proceed with surgery at this time and informed consent was obtained. Hospital Course: On 09/04/19 the patient was taken to the operating room, adequate anesthesia administered and underwent a right anterior total hip arthroplasty. The patient tolerated the procedure well and was taken to the PACU in stable condition. Post-operatively the patient was started on a DVT ppx medication and given appropriate IV antibiotics. Consults were placed to medical hospitalist, physical therapy, occupational therapy and case management. On POD#1, the patient did well overnight and their pain was well controlled. Labs were drawn and the Hgb was 10.0. Patient was found to have leukocytosis for which the medical hospitalist team was consulted. Railroad to be reactive secondary to surgery and the patient was given repeat CBC lab order upon discharge. The patient progressed well with PT. Dressings were changed at this time and the incision was clean, dry and intact. The patients hospital stay was relatively uneventful and they were deemed stable by the orthopedic team and consultants to be discharged home with HH on 09/05/19. Discharge Instructions: Upon discharge the patient may weight bear as tolerates through their operative extremity. They were instructed to keep the incision clean and dry at all times. The patient may shower but should not submerge the incision, avoid bath ing, pools and hot tubes. The patient was given a script for pain medication and should take as instructed. The patient was given a script for DVT ppx 81mg ASA BID and should take as directed. The patient was instructed to not drive or travel for long distances until cleared to do so. If the patient develops any symptoms of fevers, chills, nausea, vomiting, increased redness, swelling, pain or drainage from the surgical site, they should notify the office and/or proceed to the nearest emergency room. The patient should follow up in 10-14 days after surgery for their routine post-operative follow-up appointment and should call the office to confirm the date and time. s/p R anterior MALIK POD#1 -ancef x 24 -DVT ppx: SCDs, TEDs, 81mg ASA BID -WBAT RLE -PT/OT -PO XR demonstrates well aligned well fixed total hip prothesis, no fx/dislocation -am labs - 10.0 -DC planning - home with HH Total Time Total Time Spent Total Time Spent (In Minutes): 30 minutes Total Time Includes: Examination of the Patient, Discharge Planning, Medication Reconciliation and Communication With Other Providers Discharge Plan Discharge Items Patient Disposition: Home - Home Health Services Reason For Visit: Right Hip Osteoarthritis Discharge Diagnosis: Right anterior total hip replacement Condition on Discharge: Good Activity: Per Instructions section Lifting: Wait until after follow-up appointment Bathing: Keep incision dry Bathing Comment: No bathing, pools or hot tubs. Sexual Activity: Wait until after follow-up appointment Exercise/Sports: Wait until after follow-up appointment Driving/Machine Use: No driving. Weightbearing: Full weightbearing Non-emergency contact: Primary Care Provider and Surgeon Call non-emergency contact if: you have any medication questions, your symptoms worsen, your pain is not controlled, your pain is worsening, your pain is unusual for you, your pain is concerning for you, you have a fever, your temperature is above 101, your wound has increased redness, your wound has increased drainage and your wound pain has increased Follow-up/Referrals: Sherif Porras [Primary Care Provider] - Diet: Carb Consistent or DM2 Ambulatory Orders: Complete Blood Count with Diff (Routine) Timeframe: 3 Days Location: Determined by Patient Ordered By: Tevin Morrison Attending Provider Instructions: ACTIVITY RECOMMENDATIONS: SELF CARE INSTRUCTIONS AFTER TOTAL HIP REPLACEMENT : Direct Anterior Approach Until the incision and soft tissues around your hip have healed, there is a possibility that the hip prosthesis could dislocate. A. Hip flexion ( Up & Down out of chair or steps ) may be difficult. This is normal. B. Numbness in front of the thigh is also normal for a few weeks. C. Use hand rails when walking on stairs. D. Wear low heeled shoes with non-slip soles. E. Be sure that your floors are free of things that could trip you - throw rugs, electrical cords, small objects. Avoid wet and waxed floors, especially with crutches and canes. F. Try to walk several times a day with rest periods between. G. Continue with all the exercises taught to you in the hospital. Again, make walking a part of your daily routine. SPECIAL CARE INSTRUCTIONS: VERY IMPORTANT TO READ AND REVIEW A. You may still be at risk for phlebitis and blood clots. 1. Wear surgical stockings (ELLYN hose) for 2 weeks after surgery to improve circulation and reduce swelling. 2. Take Asprin 81mg by mouth twice daily for 4 weeks or as directed by your doctor. This is your blood thinner. 3. High risk patients may be prescribed a stronger blood thinner if necessary. 4. If you are on Coumadin normally, your family doctor/ammunition assembly laborer should monitor your blood work. Expect a phone call the day of or the day after bloodwork is drawn to adjust your dosage. B. You must take antibiotics before having dental work, bladder, bowel and other surgery. Your doctor will provide you with a permanent card to carry describing precautions. C. Call [facility] if you have a fever, redness or swelling around the incision, cloudy drainage from incision, or sudden increase in pain in your hip, not relieved by your regular pain medication. D. Please call the office at if you have any concerns or questions about your operation or recovery. * YOU MAY SHOWER, NO TUB BATHS UNTIL CLEARED BY YOUR DOCTOR. - Keep an extra close eye on the top portion of your incision. Be sure to keep clean & dry. * WEAR ELLYN HOSE 20 HOURS PER DAY FOR 2 WEEKS. * YOU MAY PROGRESS FROM A WALKER, TO A CANE, TO INDEPENDENT AT YOUR OWN PACE. * MOST PATIENTS WILL HAVE HOME NURSING FOR THERAPY. IF YOU DECIDE TO DO OUTPATIENT PHYSICAL THERAPY, PLEASE SCHEDULE THIS 3 TIMES PER WEEK. * DERMABOND Prineo- This is a mesh tape dressing that is covered with glue. It should remain in place until the incision is properly healed, usually 10-14 days. This dressing is designed to naturally slough off. You may trim the excess mesh tape as it peels off. Incision may be briefly wet in a shower. Dry immediately by blotting with a clean, dry towel. Do not bath or swim until instructed by your doctor. Do not scratch, rub, or pick at the dressing. Do not apply any topical ointments or lotions until dressing is completely removed and/or instructed by your doctor. There may be a small piece of suture material at one end of your incision. Do not pull or trim this. If it is bothersome or catching on clothing, you may cover it with a band-aid. FOLLOW UP VISIT: If appointment is not already scheduled: Please call [facility] to make a follow-up appointment for 2 weeks after your surgery at . Pending Studies at Discharge: No Stand-Alone Forms: My [employer], Opioid Pain Management, Smoking Cessation Medications and DC Order Prescriptions: New oxycodone 5 mg tablet 5 mg PO Q6H MDD 6 tabs PRN (Reason: pain) Qty: 30 RF: 0 acetaminophen 500 mg tablet 1,000 mg PO Q8H PRN (Reason: fever or pain) Qty: 90 RF: 0 aspirin 81 mg tablet,delayed release (DR/EC) 81 mg PO BID Qty: 56 RF: 0 Senna-Extra 17.2 mg tablet 17.2 mg PO HS PRN (Reason: constipation) Qty: 28 RF: 0 Continued simvastatin 10 mg Tablet 10 mg PO PM RF: 0 calcium carbonate [Calcium 600] 600 mg calcium (1,500 mg) Tablet 600 mg PO QAM RF: 0 vitamin B complex [B Complex 1] Tablet 1 tab PO QAM RF: 0 cholecalciferol (vitamin D3) [Vitamin D3] 2,000 unit Tablet 2,000 unit PO QPM RF: 0 metformin 500 mg tablet extended release 24 hr 500 mg PO QPM RF: 0 Discharge Orders: Discharge Order (Routine); Ordered 09/05/19 Ordered By: Eliazar Keenan/Other Patient Handouts: DVT Prevent Admission Data Admit Date/Time: 09/04/19 09:26 Attending Provider: Eliazar Ny Admit Provider: Eliazar Ny Primary Care Provider: Sherif Porras Other Providers: Tevin Scales Other Interventions: Discharge Summary Assessment (RN) Last Done: 09/05/19 14:25 DC Date/Time DO NOT enter until pt leaves facility: 09/05/19 15:21
== END 2019-09-05 15:21 | disposition home health service (06) | DRG 470 ==
LOC: ASU 04:54 → 3E 09:26